=== PATIENT | male | born 1965 | race Caucasian/White ===

== ENCOUNTER 2023-12-11 09:29 | Day surgery (SDC) | payer OTHER ==
[~2023-12-11] VITALS: Ht 193 cm; Wt 111.4 kg
[~2023-12-11 09:29] MED LIST: ALLEGRA180 MG PO; FLONASE ALLERG9.9 ML NS; HYDROCODON-ACE1 EA11 PO; IBLOOD GLUCOSE TEST STRIP 1 EA TEST VI PRN; LACTATED RINGER'S 1,000 ML IV SCH; LIDOCAINE HCL 1% 5 ML SDV INJ ONE; MIDAZOLAM HCL 5 MG/5 ML VIAL IV PRN; NORCO 7.5-3251 EACH PO; VITAMIN C1000 MG PO; VITAMIN D350 MCG PO; fentaNYL citrate 100 MCG/2 ML VIAL IV PRN
[2023-12-11 09:43] VITALS: BP 148/71
[2023-12-11] MEDS ORDERED: MIDAZOLAM HCL 5 MG/5 ML VIAL ONE (10:14)
[2023-12-11] MEDS ORDERED: fentaNYL citrate 100 MCG/2 ML VIAL ONE (10:15)
--- NOTE | 2023-12-11 10:58 | NUR ---
12/11/23 1058 Beatrice Angel PT TO PACU AWAKE DENIES PAIN AND NAUSEA.
[2023-12-11 11:16] VITALS: BP 120/64
--- NOTE | 2023-12-15 11:31 | OR ---
[facility] [address], [place] [address] Signed DATE OF OPERATION: 12/11/2023 SURGEON: Mark Martin MD PREOPERATIVE DIAGNOSIS: Colon screening. POSTOPERATIVE DIAGNOSES: 1. Sigmoid diverticulosis. 2. Diminutive polyp of cecum. PROCEDURE: Total colonoscopy to cecum with cold morcellation polypectomy x1. ANESTHESIA: Intravenous sedation; fentanyl 150 mcg, Versed 8 mg. INDICATION: This 58-year-old white man is a patient of Dr. Gino Merida and known to me from the past. He is here for surveillance colonoscopy. He has no symptoms of bleeding, diarrhea, or constipation and no family history of colon cancer. His last colonoscopy was in 2013, which was normal. He understands the risk of bleeding, infection, and perforation related to colonoscopy and wished to proceed. FINDINGS: The prep was excellent. Complete colonoscopy was undertaken of the cecum with full intubation of the cecum. There is what appeared to be a diminutive polyp of the cecum, which was excised though it was certainly not a large polyp by any means. There were diverticula of the sigmoid colon, none of which were too large. There were no other findings of note. PROCEDURE IN DETAIL: The patient was brought to the endoscopy suite and placed in lateral decubitus position, given intravenous sedation to the point of slurred speech and nystagmus. Digital rectal examination was normal. An Olympus video colonoscope was passed in the rectum and manipulated throughout the colon ultimately intubating the cecum itself. The ileocecal valve and appendiceal orifice were normal. There appeared to be a very small diminutive polyp of the cecum, which was excised with cold morcellation technique. The scope was then withdrawn and Electronically Signed By: MARK MARTIN MD 12/15/23 1131 PATIENT NAME: ABEL AN OPERATIVE REPORT DATE OF : 61 REPORT #: [id number] PHYSICIAN: MARK MARTIN MD PCP: GINO MERIDA MD REPORT IS CONFIDENTIAL AND NOT TO BE RELEASED WITHOUT AUTHORIZATION [facility] [address] [place] [id number] Signed examination throughout showed no sign of abnormality other than diverticular change of the sigmoid. Retroflexed view of the rectum was normal. Scope was removed and the patient was taken to the recovery room in good condition. CONCLUDING DIAGNOSES: 1. Diminutive polyp of rectum, excised. 2. Minimal diverticulosis. PLAN: Recommend repeat colonoscopy in 7 to 10 years based on current recommendations, sooner if symptoms should develop. He will return to the ongoing care of Dr. Merida. He is advised to maintain a high-fiber diet. MD KISHA Gloria/LISET /[id number] cc: Gino Merida MD Copies: GINO MERIDA DMD ~ Electronically Signed By: MARK MARTIN MD 12/15/23 1131 PATIENT NAME: ABEL AN OPERATIVE REPORT DATE OF : 61 REPORT #: [id number] PHYSICIAN: MARK MARTIN MD PCP: GINO MERIDA MD REPORT IS CONFIDENTIAL AND NOT TO BE RELEASED WITHOUT AUTHORIZATION
--- NOTE | 2023-12-15 18:25 | PATH ---
[facility] [address] [place], [place] [address] Signed SPECIMEN(S): A CECUM POLYP SPECIMEN SOURCE: A. CECUM POLYP CLINICAL HISTORY: Screening for malignant neoplasm, diminutive polyp of cecum. FINAL PATHOLOGIC DIAGNOSIS: Cecum polyp: - Serrated polyp/adenoma (one fragment). JVR:clv MICROSCOPIC EXAMINATION: Histologic sections of all submitted blocks are examined by light microscopy. These findings, together with the gross examination, support the pathologic diagnosis. GROSS DESCRIPTION: The specimen, labeled and designated "Levi, J, 1." and designated on the requisition "cecum polypectomy," is received in formalin and consists of one melvin soft tissue fragment that is 0.4 cm in greatest dimension. The specimen is entirely submitted in (A1). FB (under the direct supervision of a pathologist) The Gross Description was prepared using a voice recognition system. The report was reviewed for accuracy; however, sound-alike word errors, addition and/or deletions may occur. If there is any question about this report, please contact Client Services. PERFORMING LABORATORY: Technical component was performed by [facility], [address] [place] [id number] (CLIA# [id number]). Professional interpretation was performed by [facility], [address] [place] [id number] (CLIA#: [id number]). Diagnostician: Kade Cesar MD Pathologist Electronically Signed 12/15/2023 Copies: PATIENT NAME: ABEL AN PATHOLOGY DATE OF : 61 REPORT #: [id number] PHYSICIAN: JIMI PATHOLOGY PCP: GINO MERIDA MD REPORT IS CONFIDENTIAL AND NOT TO BE RELEASED WITHOUT AUTHORIZATION [address] [address] Signed ~ PATIENT NAME: ABEL AN PATHOLOGY DATE OF : 61 REPORT #: [id number] PHYSICIAN: JIMI PATHOLOGY PCP: GINO MERIDA MD REPORT IS CONFIDENTIAL AND NOT TO BE RELEASED WITHOUT AUTHORIZATION
== END 2023-12-11 11:30 | disposition home or self-care (01) ==
LOC: DS 09:29
PROVIDERS: ATTEND Surgery
PROC: 0DBH8ZZ Excision of Cecum, Via Natural or Artificial Opening Endoscopic (ICD-10-PCS; principal; 2023-12-11 11:00)
DX: Z12.11 Encounter for screening for malignant neoplasm of colon (principal); D12.0 Benign neoplasm of cecum; K57.30 Diverticulosis of large intestine without perforation or abscess without bleeding
CPT/HCPCS: 99153; G0500; J2250; J3010